=== PATIENT | male | born 1985 | race Caucasian/White ===

== ENCOUNTER 2016-06-27 16:03 | Emergency (ER) | payer OTHER ==
[~2016-06-27] VITALS: Ht 165.1 cm; Wt 80.1 kg
[~2016-06-27 16:03] MED LIST: AUGMENTIN875 MG PO; BACTRIM,SEPT1 TABLET; BACTRIM,SEPT1 TABLET PO; BENTYL10 MG PO; CARAFATE100 MG/ML PO; CUBICIN500 MG/10 IV; EPIPEN ADU0.3 MG/0.3 IM; FLAGYL500 MG PO; FLEXERIL10 MG PO; FLOMAX0.4 MG PO; HYDROCODON-ACE1 EAC7 PO; IBUPROFEN800 MG PO; KEFLEX500 MG PO; MOTRIN600 MG PO; MOTRIN800 MG PO; NAPROXEN500 MG PO; NEXIUM40 MG PO; NOHOMEMEDS; NORCO 5/3251 TABLET PO; PEN-VEE K,VEET500 MG PO; PEPCID20 MG PO; PERCOCET 5/31 TABLET PO; PERCOCET 7.51 TABLET PO; PREDNISONE20 MG PO; PROTONIX40 MG PO; Percocet 5/325,Endoc PO; TESSALON200 MG PO; ULTRAM50 MG PO; VALIUM5 MG PO; VALTREX1000 MG PO; VICODIN,LORT1 TABLET PO; ZOFRAN ODT4 MG PO; ZOFRAN4 MG PO
[2016-06-27 16:52] LABS: HEMATOCRIT 46.6 % (38.0-50.0); MCH 28.4 PG (29.0-34.0); MCHC 32.8 G/DL (30.0-36.0); MCV 86.5 FL (86-99); MEAN PLAT.VOLUME 9.6 uM^3 (9.0-12.4); PLATELET COUNT 273 K/uL (156-360); RBC DIS.WIDTH-SD 40.9 % (39-53); RED BLOOD COUNT 5.39 M/uL (4.00-5.50); WHITE BLOOD COUNT 8.5 K/uL (4.1-10.2)
[2016-06-27 17:02] LABS: ADD MIUA? NO; BILIRUBIN NEGATIVE; BLOOD NEGATIVE; COLOR YELLOW ((YELLOW)); GLUCOSE (STRIP) NEGATIVE; KETONES NEGATIVE; LEUKOCYTES NEGATIVE; NITRITE NEGATIVE; PROTEIN (STRIP) NEGATIVE; UCUL ADDED? NO; UROBILINOGEN 0.2 MG/DL (0.2-1.0)
[2016-06-27 17:02] LABS: CHLORIDE 108 mEq/L (99-109); POTASSIUM 4.1 mEq/L (3.7-5.4); SODIUM 141 mEq/L (136-147)
[2016-06-27 17:04] LABS: GLUCOSE 82 mg/dL (70-99)
[2016-06-27 17:06] LABS: ANION GAP 10 MEQ/L (2-14); TOTAL BILIRUBIN 0.4 mg/dL (0.0-1.0)
[2016-06-27 17:08] LABS: ALKALINE PHOSPHATASE 63 IU/L (3-129); GFR ESTIMATE (CALCULATED) > 59 mL/min/
[2016-06-27 17:09] LABS: UREA NITROGEN (BUN) 12 mg/dL (9-23)
[2016-06-27 19:58] LABS: LIPASE 15 U/L (1.0-51.0)
[2016-06-27 21:18] VITALS: BP 120/75
== END 2016-06-27 21:18 | disposition home or self-care (01) ==
LOC: EME 16:03
PROVIDERS: Physician Assistant
DX: R10.9 Unspecified abdominal pain (principal); F17.200 Nicotine dependence, unspecified, uncomplicated
CPT/HCPCS: 74177; 80053; 81003; 83690; 85027; 99281; 99284; J1885; J2405; J3010; J7030

== ENCOUNTER 2016-09-29 15:56 | Emergency (ER) | payer OTHER ==
[~2016-09-29] VITALS: Ht 165.1 cm; Wt 76.6 kg
[2016-09-29] MEDS ORDERED: PREDNISONE50 MG PO (17:15)
[2016-09-29] MEDS ORDERED: MOTRIN600 MG PO (17:15)
[2016-09-29] MEDS ORDERED: NORCO 5/3251 TABLET PO (17:15)
[2016-09-29] MEDS ORDERED: FLEXERIL5 MG PO (17:15)
[2016-09-29 17:32] VITALS: BP 118/79
== END 2016-09-29 17:34 | disposition home or self-care (01) ==
LOC: EME 15:56
DX: M54.5 Low back pain (principal); Z87.442 Personal history of urinary calculi; Z86.14 Personal history of Methicillin resistant Staphylococcus aureus infection; F17.200 Nicotine dependence, unspecified, uncomplicated
CPT/HCPCS: 99281; 99283; J7512

== ENCOUNTER 2017-05-02 14:45 | Emergency (ER) | payer OTHER ==
[~2017-05-02] VITALS: Ht 165.1 cm; Wt 76.7 kg
[~2017-05-02 14:45] MED LIST changes: +FLEXERIL5 MG PO; +PREDNISONE50 MG PO
[2017-05-02 16:05] LABS: HEMOGLOBIN 16.9 G/DL (12.5-16.6); MCH 28.6 PG (29.0-34.0); MCHC 33.8 G/DL (30.0-36.0); MCV 84.7 FL (86-99); PLATELET COUNT 225 K/uL (156-360); RBC DIS.WIDTH-CV 13.2 % (11.8-14.6); RBC DIS.WIDTH-SD 41.1 % (39-53); WHITE BLOOD COUNT 8.6 K/uL (4.1-10.2)
[2017-05-02 16:18] LABS: CHLORIDE 105 mEq/L (99-109); POTASSIUM 4.1 mEq/L (3.7-5.4); SODIUM 139 mEq/L (136-147)
[2017-05-02 16:20] LABS: GLUCOSE 101 mg/dL (70-99)
[2017-05-02 16:24] LABS: CREATININE 0.8 mg/dL (0.6-1.3); GFR ESTIMATE (CALCULATED) > 59 mL/min/ (58.99-99999)
[2017-05-02 16:25] LABS: UREA NITROGEN (BUN) 8 mg/dL (9-23)
[2017-05-02] MEDS ORDERED: NORCO 5/3251 TABLET PO (18:41)
[2017-05-02] MEDS ORDERED: FLEXERIL10 MG PO (18:41)
[2017-05-02] MEDS ORDERED: NAPROSYN500 MG PO (18:41)
[2017-05-02 19:19] VITALS: BP 139/84
== END 2017-05-02 19:21 | disposition home or self-care (01) ==
LOC: EME 14:45
DX: R07.81 Pleurodynia (principal); J45.909 Unspecified asthma, uncomplicated; F17.200 Nicotine dependence, unspecified, uncomplicated; F32.9 Major depressive disorder, single episode, unspecified; Z87.442 Personal history of urinary calculi
CPT/HCPCS: 71046; 80048; 85027; 93005; 99281; 99285